=== PATIENT | male | born 1970 | race Caucasian/White ===

== ENCOUNTER 2017-06-21 13:54 | Emergency (ER) | payer OTHER ==
--- OUTSIDE RECORDS SUMMARY | 2017-06-21 13:56 | XMS REPORT | Clinical Summary ---
Author Author [facility] Address Unknown Phone Unavailable Care Team Providers Care Customer Care Team Coach Name Role Phone Asked, Pcp PCP Unavailable Allergies Active Allergy Reactions Severity Noted Date Comments Hydrocodone-Acetaminophen 06/13/2017 Current Medications Prescription Sig. Disp. Refills Start End Date Status Date multivitamin (THERAGRAN) Take 1 tablet by mouth Active tablet daily. 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 Encounters Date Type Specialty Care Team Description 06/13/2017 Office Visit Neurology Terese Dee MD Chronic myofascial pain (Primary Dx); Paresthesias; Anxious depression after 06/20/2016 Family History Medical History Relation Name Comments Hypertension Father Hypertension Mother Thyroid disease Mother Relation Name Status Comments Father Alive Mother Alive Social History Tobacco Use Types Packs/Day Years Used Date Never Smoker Smokeless Tobacco: Never Used Alcohol Use Drinks/Week oz/Week Comments No Sex Assigned at Date Recorded Not on file Last Filed Vital Signs Vital Sign Reading Time Taken Blood Pressure 124/72 06/13/2017 1:34 PM [employer]ED PLACEMENT COORDINATOR Pulse 59 06/13/2017 1:34 PM BED PLACEMENT COORDINATOR Temperature - - Respiratory Rate - - Oxygen Saturation - - Inhaled Oxygen - - Concentration Weight 59.4 kg (131 lb) 06/13/2017 1:34 PM BED PLACEMENT COORDINATOR Height 167.6 cm (5' 6") 06/13/2017 1:34 PM BED PLACEMENT COORDINATOR Body Mass Index 21.14 06/13/2017 1:34 PM BED PLACEMENT COORDINATOR Plan of Treatment Date Type Specialty Care Team Description 07/01/2017 Procedure visit Neurology Fidelina Iqbal MD [address] [facility] [address] [place] [address] [phone] Health Maintenance Due Date Last Done Comments INFLUENZA VACCINE 11/20/2016 Results Not on fileafter 06/20/2016 Insurance Payer Benefit Subscriber ID Type Phone Address Plan / Group AETNA AETNA xxxxxxxxxx HMO HMO,POS,EP O, [place] Home: [id number] [facility] [place] [phone]
== END 2017-06-21 15:35 | disposition left against medical advice (07) ==
LOC: ER 13:54
DX: R07.89 Other chest pain (principal)